=== PATIENT | female | born 1995 | race Caucasian/White ===

== ENCOUNTER 2020-07-21 22:45 | Emergency (ER) | payer OTHER, SELFPAY ==
--- NOTE | 2020-07-21 22:47 | ED_ITS ---
HPI - General Adult General Chief complaint: Head Injury Stated complaint: Concussion Time Seen by Provider: 07/21/20 22:45 Source: patient Mode of arrival: EMS Limitations: no limitations History of Present Illness HPI narrative: Patient is a 25-year-old otherwise healthy female who is here for evaluation of a possible concussion. Patient was at work this evening when she states she was reaching for a can off of a shelf when he came down and hit her in the top of the head. There was no loss of consciousness and she is not on any blood thinners. EMS was called because she had headache and had some dizziness. She reports no prior diagnosis of concussions. No nausea or vomiting. EMS states that she was slow to answer other questions. Upon my evaluation her only complaint was headache. She has not tried anything for symptoms prior to arrival. Review of Systems Constitutional Constitutional: Reports headache(s) Eyes Eyes: Denies blurry vision and Reports photophobia ENT Ears, Nose, Mouth, and Throat: Denies vertigo, Denies dizziness and Reports headache(s) Cardiovascular Cardiovascular: Reports system reviewed and no additional complaints, except as documented Respiratory Respiratory: Reports system reviewed and no additional complaints, except as documented Musculoskeletal Musculoskeletal: Reports system reviewed and no additional complaints, except as documented Integumentary/Breasts Skin/Breast: Denies lesions and Reports rash Neurologic Neurologic: Denies vertigo, Denies dizziness, Reports headache(s), Denies memory loss and Denies tingling Psychiatric Psychiatric: Denies memory loss Hematologic/Lymphatic On Anticoagulants: No Allergic/Immunologic Allergic/Immunologic: Reports system reviewed and no additional complaints, except as documented Patient History Medical History Healthy adult Social History Smoking Status: Never smoker Exam Initial Vital Signs Initial Vital Signs: Vital Signs Temperature 98.6 F 07/21/20 22:51 Pulse Rate 78 07/21/20 22:51 Respiratory Rate 18 07/21/20 22:51 Blood Pressure 143/91 H 07/21/20 22:51 Pulse Oximetry 98 07/21/20 22:51 Const General: cooperative and comfortable Limitations: mental status not altered HENKY Head: normal to inspection, normocephalic, atraumatic, No abrasion, No contusion and other (Tender to palpation on the top of her head) Mouth: oral mucosae normal Eyes General: appearance normal, both eyes and all related structures Other: Photophobia Resp Effort & Inspection: normal respiratory effort Auscultation: clear to auscultation bilaterally Cardio Rate: regular rate Rhythm: regular rhythm Skin Lesions: no lesions Rashes: no rashes Neuro General: patient alert, patient awake, patient oriented x3 and no focal motor deficits Cognition: normal cognition Motor: muscle tone normal throughout Sensory Exam: no sensory deficits noted Extrem General: normal to inspection and capillary refill normal Psych Appearance: grossly normal and well kempt Scores [place] CT Head Rule Age <16 years old: No Patient on blood thinners: No Seizure after injury: No Exclusion: Patient NOT Excluded, Proceed to next steps GCS < 15 at 2 hr post trauma: No Suspected open or depressed skull fracture: No Any sign of basilar skull fracture (hemotympanum, raccoon eyes, Yan's sign, CSF chastity-/rhinorrhea): No Two or more episodes of vomiting: No Age greater or equal to 65 years: No Retrograde amnesia to the event greater or equal to 30 min: No Dangerous Mechanism (pedestrian vs. mv, occupant ejected from mv, fall from >3 ft or > 5 stairs): No Recommendation: CT unnecessary GCS Ell[place] coma scale eye opening: Spontaneous [place] coma scale verbal response: Orientated [place] coma scale motor response: Obey commands Natalya coma scale total score: 15 Course Orders Ordered: Discontinued Medications Acetaminophen (Acetaminophen 325 Mg Tablet) 650 mg PO NOW ONE Stop: 07/21/20 23:02 Last Admin: 07/21/20 23:09 Dose: 650 mg Documented by: Vital Signs Vital signs: Vital Signs - 8 hr 07/21/20 22:51 Temperature 98.6 F Pulse Rate 78 Respiratory Rate 18 Blood Pressure 143/91 H Pulse Oximetry 98 Medical Decision Making MDM Narrative Medical decision making narrative: Patient is alert oriented x3. Has a GCS of 15. Does have tenderness to palpation when touching the top of her head however there is no signs of any depressed skull fractures and there were no abrasions or lesions in this area. She does have some photophobia. No other focal neurologic deficits. I have low suspicion for skull fracture or intracranial bleed. I feel we should hold on his CT scan for now. She was given Tylenol for her headache. She was given return precautions and follow-up instructions. She expressed understanding and agreement. Discharge Plan Departure Patient Disposition: Home Clinical Impression: Closed head injury, Concussion without loss of consciousness, Headache Instructions: Concussion Activity Restrictions/Additional Instructions: You have no restrictions on your activities. You can eat like normal and sleep like normal. You can take Tylenol for any headaches. Contact your primary provider for follow-up. Return to the emergency department for any new or worsening symptoms Stand Alone Forms: Work Release Note
[2020-07-21 22:51] VITALS: BP 143/91; PULSE 78; RESP 18; TEMP 37; O2SAT 98; BMI 25.4
[2020-07-21] MEDS: ACETAMINOPHEN 325 MG TABLET 650 MG PO (23:09)
[2020-07-22 00:25] VITALS: BP 130/80; PULSE 84; RESP 18; O2SAT 98
== END 2020-07-22 00:25 | disposition home or self-care (01) ==
PROVIDERS: Emergency Provider Emergency Medicine
DX: S06.0X0A Concussion without loss of consciousness, initial encounter (principal); R51.9 Headache, unspecified; R42 Dizziness and giddiness; W22.8XXA Striking against or struck by other objects, initial encounter
CPT/HCPCS: 99282; 99283